=== PATIENT | female | born 1995 | race Caucasian/White ===

== ENCOUNTER 2020-10-02 06:56 | Inpatient (IN) | payer OTHER, SELFPAY ==
[~2020-10-02] VITALS: Ht 157.5 cm; Wt 67.6 kg
[2020-10-02] MEDS ORDERED: LR 1,000 ML IV SCH ×2 (07:30→19:00)
[2020-10-02] MEDS ORDERED: LR 1,000 ML IV ONE (07:30)
[2020-10-02] MEDS ORDERED: TERBUTALINE SULFATE 1 MG/ML VIAL SUBCUT ONE (07:30)
[2020-10-02] MEDS ORDERED: OXYTOCIN/0.9 % SODIUM CHLORIDE 1,000 ML IV SCH ×2 (07:30→19:00)
[2020-10-02] MEDS ORDERED: ROPIVACAINE HCL/PF 0.2% 200 ML ONE (07:39)
[2020-10-02] MEDS ORDERED: fentaNYL CITRATE/PF 100 MCG/2 ML AMP ONE (07:39)
[2020-10-02 08:07] LABS: BASOPHILS % (AUTO) 0.4 % (0.0-2.0); EOSINOPHILS % (AUTO) 0.4 % (0.0-4.0); HEMATOCRIT 39.1 % (36-48); HEMOGLOBIN 13.2 g/dL (12.0-16.0); LYMPHOCYTES # (AUTO) 1.7 K/uL (1.0-5.5); LYMPHOCYTES % (AUTO) 29.1 % (20.5-51.5); MEAN CORPUSCULAR HEMOGLOBIN 33 pg (27-31); MEAN CORPUSCULAR HGB CONC 34 % (32-36); MEAN CORPUSCULAR VOLUME 98 fL (79.0-98.0); MONOCYTES # (AUTO) 0.6 K/uL (0.0-1.0); MONOCYTES % (AUTO) 9.8 % (1.7-9.3); NEUTROPHILS # (AUTO) 3.5 K/uL (1.8-7.7); NEUTROPHILS % (AUTO) 60.3 % (40.0-70.0); PLATELET COUNT (AUTO) 204 K/uL (130-430); RED CELL DISTRIBUTION WIDTH 12.8 % (9.0-15.0); WHITE BLOOD COUNT (AUTO) 5.8 K/uL (4.8-10.8)
[2020-10-02] MEDS ORDERED: ONDANSETRON HCL 4 MG/2 ML VIAL IVP PRN ×2 (09:00→20:00)
[2020-10-02] MEDS ORDERED: DIPHENHYDRAMINE INJ 50 MG/ML VIAL IVP PRN (09:00)
[2020-10-02] MEDS ORDERED: NALOXONE HCL 0.4 MG/ML AMP (NARCAN) IVP PRN ×3 (09:00→20:00)
[2020-10-02] MEDS ORDERED: FENT2mCg/mL-ROPIVA0.2%/NS EPID 200 ML EP SCH (09:00)
[2020-10-02 10:08] VITALS: BP_SYST 105
[2020-10-02] MEDS ORDERED: CEFAZOLIN 2 GM IVPB PREMIX 50 ML IV ONE ×2 (18:00→18:28)
[2020-10-02] MEDS ORDERED: DIPH-TET-PERTUS Vaccine 0.5 ML VIAL (ADACEL) I.M. PRN (19:00)
[2020-10-02] MEDS ORDERED: HYDROcodone/ACETAMIN 5-325 MG TAB (NORCO/ VICODIN) PO PRN (19:00)
[2020-10-02] MEDS ORDERED: MEASLES,MUMPS&RUBELLA VACC/PF 12500 UNIT/0.5 ML VIAL SUBQ PRN (19:00)
[2020-10-02] MEDS ORDERED: ANUSOL 1 EA SUPP.RECT (PREPARATION H) RC PRN (19:00)
[2020-10-02] MEDS ORDERED: LANOLIN 7 GM OINT. TP PRN (19:00)
[2020-10-02] MEDS ORDERED: RHO(D) IMMUNE GLOBULIN/MALTOSE 1500 UNITS/1.3 ML (WINHRO) IM PRN (19:00)
[2020-10-02] MEDS ORDERED: TEMAZEPAM 15 MG CAPSULE PO PRN (19:00)
[2020-10-02] MEDS ORDERED: BISACODYL 10 MG/SUPPOSITORY RC PRN (19:00)
[2020-10-02] MEDS ORDERED: SENNOSIDES/DOCUSATE SODIUM 1 TAB TABLET(SENOKOT-S) PO PRN (19:00)
[2020-10-02 19:42] VITALS: BP_SYST 152
[2020-10-02] MEDS ORDERED: MEPERIDINE HCL/PF 25 MG/ML DISP.SYRIN ONE (19:49)
[2020-10-02] MEDS ORDERED: MORPHINE SULFATE 10MG/10ML PF AMP EP SCH (20:00)
[2020-10-02] MEDS ORDERED: MEPERIDINE HCL/PF 25 MG/ML DISP.SYRIN IVP PRN (20:00)
[2020-10-02] MEDS ORDERED: KETOROLAC TROMETHAMINE 60 MG/2 ML VIAL IM PRN (20:00)
[2020-10-02] MEDS ORDERED: DIPHENHYDRAMINE INJ 50 MG/ML VIAL IM PRN (20:00)
[2020-10-02] MEDS: CEFAZOLIN 1 GM IVPB PREMIX 50 ML IV SCH (23:08)
[2020-10-03] MEDS: KETOROLAC TROMETHAMINE 30 MG VIAL IVP SCH ×3 (05:21→17:15)
[2020-10-03] MEDS: CEFAZOLIN 1 GM IVPB PREMIX 50 ML IV SCH ×2 (05:21→10:37)
[2020-10-03 08:52] LABS: BASOPHILS % (AUTO) 0.1 % (0.0-2.0); HEMOGLOBIN 11.2 g/dL (12.0-16.0); LYMPHOCYTES # (AUTO) 1.3 K/uL (1.0-5.5); LYMPHOCYTES % (AUTO) 8.4 % (20.5-51.5); MEAN CORPUSCULAR HEMOGLOBIN 33 pg (27-31); MEAN CORPUSCULAR HGB CONC 34 % (32-36); MEAN CORPUSCULAR VOLUME 98 fL (79.0-98.0); MONOCYTES # (AUTO) 0.8 K/uL (0.0-1.0); MONOCYTES % (AUTO) 5.4 % (1.7-9.3); NEUTROPHILS # (AUTO) 13.5 K/uL (1.8-7.7); NEUTROPHILS % (AUTO) 86.1 % (40.0-70.0); PLATELET COUNT (AUTO) 197 K/uL (130-430); RED BLOOD CELL COUNT(AUTO) 3.37 MIL/uL (4.2-6.2); RED CELL DISTRIBUTION WIDTH 12.8 % (9.0-15.0); WHITE BLOOD COUNT (AUTO) 15.6 K/uL (4.8-10.8)
[2020-10-03] MEDS: DOCUSATE SODIUM 100 MG CAPSULE PO PRN (21:35)
[2020-10-03] MEDS: SIMETHICONE 80 MG TAB.CHEW PO PRN (21:35)
[2020-10-03] MEDS: OXYCODONE/ACETAMINOPHEN 5-325 TABLET PO PRN (21:36)
[2020-10-03] MEDS: IBUPROFEN 600 MG TABLET PO SCH (23:49)
[2020-10-04] MEDS: KETOROLAC TROMETHAMINE 30 MG VIAL IVP SCH
[2020-10-04] MEDS: OXYCODONE/ACETAMINOPHEN 5-325 TABLET PO PRN ×2 (02:04→15:38)
[2020-10-04] MEDS: IBUPROFEN 600 MG TABLET PO SCH ×3 (05:53→18:09)
[2020-10-04] MEDS: SIMETHICONE 80 MG TAB.CHEW PO PRN ×3 (05:53→18:09)
[2020-10-04] MEDS: DOCUSATE SODIUM 100 MG CAPSULE PO PRN ×2 (05:53→18:09)
[2020-10-04] MEDS: OXYCODONE/ACETAMINOPHEN *10*mg/325 mg TABLET PO PRN ×2 (06:02→19:26)
[2020-10-05 19:09] LABS: FTA-Ab (T PALLIDUM) Non Reactive (Non Reactive)
== END 2020-10-04 20:01 | disposition home or self-care (01) | DRG 788 ==
LOC: OBSVTOIN 06:56 → SPU 06:56
PROVIDERS: ADMIT Specialist; ATTEND Specialist
PROC: 10D00Z1 Extraction of Products of Conception, Low, Open Approach (ICD-10-PCS; principal; 2020-10-02 18:45)
DX: O33.9 Maternal care for disproportion, unspecified (principal); O69.2XX0 Labor and delivery complicated by other cord entanglement, with compression, not applicable or unspecified; Z20.828 Contact with and (suspected) exposure to other viral communicable diseases; O62.1 Secondary uterine inertia; Z3A.39 39 weeks gestation of pregnancy; Z37.0 Single live birth
CPT/HCPCS: 36415; 85025; 86592; 86780; 86886; 86900; 86901; J0690; J1885; J2175; J2405; J2590; J3010

== ENCOUNTER 2024-04-15 15:09 | Emergency (ER) | payer OTHER ==
[~2024-04-15] VITALS: Ht 157.5 cm; Wt 56.7 kg
[2024-04-15 15:29] VITALS: BP_SYST 114; PULSE 87; RESP 16; TEMP 98; O2SAT 100
[2024-04-15 16:24] LABS: BILIRUBIN,URINE NEGATIVE (NEGATIVE); BLOOD, URINE 1+ (NEGATIVE); CLARITY/URINE CLEAR (CLEAR); COLOR,URINE YELLOW (YELLOW); GLUCOSE,URINE NEGATIVE (NEGATIVE); KETONES,URINE 3+ (NEGATIVE); LEUKOCYTE ESTERASE ,URINE 2+ (NEGATIVE); NITRITE, URINE NEGATIVE (NEGATIVE); PROTEIN URINE TRACE (NEGATIVE); UROBILINOGEN,URINE 0.2 (0.2-1.0)
[2024-04-15 16:32] LABS: BACTERIA,URINE FEW /HPF (None Seen); MUCUS,URINE 1+ /LPF (None Seen)
[2024-04-15 16:47] LABS: BASOPHILS % (AUTO) 0.4 % (0.0-2.0); EOSINOPHILS % (AUTO) 0.3 % (0.0-4.0); HEMATOCRIT 36.8 % (36-48); HEMOGLOBIN 12.6 g/dL (12.0-16.0); LYMPHOCYTES # (AUTO) 1.2 K/uL (1.0-5.5); MEAN CORPUSCULAR HEMOGLOBIN 32 pg (27-31); MEAN CORPUSCULAR HGB CONC 34 % (32-36); MEAN CORPUSCULAR VOLUME 92 fL (79.0-98.0); MONOCYTES # (AUTO) 0.4 K/uL (0.0-1.0); MONOCYTES % (AUTO) 7.2 % (1.7-9.3); NEUTROPHILS # (AUTO) 4.2 K/uL (1.8-7.7); NEUTROPHILS % (AUTO) 71.1 % (40.0-70.0); PLATELET COUNT (AUTO) 315 K/uL (130-430); RED BLOOD CELL COUNT(AUTO) 3.99 MIL/uL (4.2-6.2); WHITE BLOOD COUNT (AUTO) 5.9 K/uL (4.8-10.8)
[2024-04-15 16:57] LABS: BILIRUBIN,DIRECT 0.1 mg/dL (0.0-0.3); CALCIUM 8.8 mg/dL (8.4-11.0); CREATININE 0.67 mg/dL (0.55-1.30); POTASSIUM 4.1 mmol/L (3.5-5.1); TOTAL BILIRUBIN 0.4 mg/dL (0.0-1.0); TOTAL PROTEIN, SERUM 7.8 g/dL (6.4-8.3)
[2024-04-15] MEDS: MAG HYDROX/AL HYDROX/SIMETH 30 ML, DICYCLOMINE HCL 20 MG, LIDOCAINE VISCOUS 2% 15ML (PO... PO ONE (18:16)
[2024-04-15] MEDS ORDERED: CIPR500T5 PO (18:54)
[2024-04-15] MEDS ORDERED: CIPR-260 PO (18:56)
[2024-04-15] MEDS ORDERED: IBUP-1969 PO (18:56)
[2024-04-15] MEDS ORDERED: OMEP40CA20 PO (18:56)
[2024-04-15 19:19] VITALS: BP_SYST 112; PULSE 89; RESP 20; TEMP 98; O2SAT 100
== END 2024-04-15 19:22 | disposition home or self-care (01) ==
LOC: SED 15:09
DX: K29.00 Acute gastritis without bleeding (principal); N39.0 Urinary tract infection, site not specified
CPT/HCPCS: 36415; 71045; 76700; 80048; 80076; 81000; 81001; 81015; 81025; 83690; 85025; 87086; 99284; J2001